=== PATIENT | female | born 1980 | race Caucasian/White ===

== ENCOUNTER 2024-05-11 02:10 | Emergency (ER) | payer OTHER, SELFPAY ==
[2024-05-11 02:12] VITALS: BP 104/74
--- NOTE | 2024-05-11 02:23 | ED.GENMED ---
History of Present Illness
General
Chief Complaint: Musculo-Skeletal Complaint
Source: patient
Exam Limitations: none
Time Seen by Provider: 05/11/24 02:19
Nursing documentation reviewed up to this point in time: agreed with
History of Present Illness
History of Present Illness:
43-year-old woman with history of celiac disease, maintained on no medication presents after inadvertently stubbing her right fourth toe on exercise equipment at home. She complains of pain and lateral deformity of her fourth toe. She denies
numbness, denies foot pain nor ankle pain. She has not taken anything for pain.
She denies risk of .
Past History
Past History
ED Past Medical History: Other (Celiac disease)
ED Past Surgical History: None
Social History
Tobacco: Non-smoker
Employment: Employed
Family History
Family History: Other (Noncontributory)
Phy Exam
Physical Exam
Physical Exam:
PHYSICAL EXAMINATION:
General: 43-year-old woman appears her stated age, awake and alert, pleasant, appears in no acute distress.
Neuro: alert and oriented. no focal neurological deficits
Psychiatric: well kept. interactive and cooperative
Musculoskeletal: [Right fourth toe with moderate tenderness at base of the toe with mild lateral angulation of the toe. Skin is intact. Distal sensation, strength intact. Rapid capillary refill. There is no tenderness to
the foot nor ankle. Peripheral pulses are full and equal bilaterally.]
Course
Orders/Labs/Results
Orders:
Orders
05/11/24 02:22
Ibuprofen [Motrin] 600 mg PO NOW STA
Oxycodone/Acetaminophen [Percocet 5/325] 1 tablet PO NOW STA
Toes 2 Views, Right [CR Toe(s) Min 2 Vw Right] Urgent
Comment:
Reason For Exam: stubbed R 4th toe-pain/deformity
05/11/24 03:14
Cast Shoe Right-Treatment ONCE
Vital Signs
Initial and Last Documented VS:
Initial Vital Signs
Temp Pulse Resp BP Pulse Ox
97.8 F 80 18 104/74 100
05/11/24 02:12 05/11/24 02:12 05/11/24 02:12 05/11/24 02:12 05/11/24 02:12
Last Documented Vital Signs
Temp Pulse Resp BP Pulse Ox
97.8 F 80 18 104/75 100
05/11/24 02:12 05/11/24 02:12 05/11/24 02:12 05/11/24 02:57 05/11/24 02:12
MDM/Problems Addressed
Differential Diagnosis Includes:
History and exam consistent with fracture at base of right fourth toe with mild lateral angulation.
Skin is intact.
The toe remains neurovascularly intact and there is no evidence of foot nor additional toe injuries.
Will medicate for pain and check x-ray.
*Radiology
Radiology exam reviewed: preliminary read by ED provider (X-ray shows fracture base of proximal phalanx fourth toe as well as fracture base of distal phalanx fourth toe with minimal angulation)
*Pulse Oximetry
Patient hypoxic: no
*Critical Care Note
Total Time (30-74mins, 75-104mins- exclusive of procedures): Not Applicable
Update Note
Update Note:
05/11/2024 0315 AM
Patient resting comfortably with moderate improvement in pain after an oral dose of ibuprofen.
X-ray shows fracture of base of proximal as well as fracture base of distal phalanx of the fourth toe with minimal angulation laterally.
She remains hemodynamically and stable. Will avoid manipulation of toe and instead will place in cast shoe for comfort with plan for follow-up with orthopedics versus podiatry for further evaluation.
Recommend elevation, ice. Prescription for ibuprofen as well as a few Percocet have been provided for as needed pain.
ED Attending Note
-
Portions of this chart may have been created with voice recognition software.� Occasional wrong word or��sound alike� substitutions may have occurred due to the inherent limitations of voice recognition software.
Discharge Plan
Departure
Patient Disposition: Home (Routine Discharge)
Date of Disposition: 05/11/24
Time of Disposition: 03:16
Patient with high blood pressure during this ER visit?: No
Condition: Good
Discharge Problem:
Closed fracture of fourth toe of right foot
Instructions: Toe Fracture ED
Prescriptions:
New
oxycodone-acetaminophen [Percocet] 5-325 mg Tablet
1 tab PO Q6HPRN PRN (Reason: pain) Qty: 5 0RF
ibuprofen 600 mg tablet
600 mg PO QID PRN (Reason: fever or pain) Qty: 20 0RF
Referrals:
James Butler MD [Active] - Follow up in 2-3 days
Jose Raymundo DPM [Active] - Follow up in 2-3 days
Interventions
Interventions:
*Risk Screen - Suicide Last Done: 05/11/24 02:12
*General Assessment Last Done: 05/11/24 02:55
*Neglect/Abuse Screening Last Done: 05/11/24 02:12
*ED COVID-19 Vaccine History Last Done: 05/11/24 02:55
ED-Musculoskeletal Assessment Last Done: 05/11/24 02:55
Discharge Date and Time
Print Language: MOLDOVAN
[2024-05-11] MEDS: MOTRIN 600 MG PO (02:28)
[2024-05-11 02:55] VITALS: BMI 19.8
[2024-05-11 02:57] VITALS: BP 104/75
[2024-05-11] MEDS: PERCOCET 5/325 PO (03:08)
[2024-05-11] MEDS: PERCOCET 5/325 1 TABLET PO (03:29)
== END 2024-05-11 03:38 | disposition home or self-care (01) ==
LOC: EMR 02:10
PROVIDERS: EMERGENCY PHYSICIAN Emergency Medicine
DX: S92.511A Displaced fracture of proximal phalanx of right lesser toe(s), initial encounter for closed fracture (principal); W21.89XA Striking against or struck by other sports equipment, initial encounter; Y92.009 Unspecified place in unspecified non-institutional (private) residence as the place of occurrence of the external cause; K90.0 Celiac disease; Z86.16 Personal history of COVID-19
CPT/HCPCS: 99283; 73660